=== PATIENT | female | born 1960 | race Asian ===

== ENCOUNTER 2019-03-07 11:55 | Emergency (ER) | payer OTHER ==
[~2019-03-07] VITALS: Ht 160 cm; Wt 73.0 kg
[2019-03-07] MEDS ORDERED: EVIS60 PO (12:01)
[2019-03-07] MEDS ORDERED: LEVO25TA2 PO (12:01)
[2019-03-07] MEDS ORDERED: IBUPROFEN 600MG TABLET PO ONE (12:30)
[2019-03-07] MEDS ORDERED: CYCLOBENZAPRINE 10MG TABLET PO SCH (12:30)
[2019-03-07 15:30] VITALS: BP 126/78
== END 2019-03-07 15:45 | disposition home or self-care (01) ==
LOC: ER 11:55
DX: S13.4XXA Sprain of ligaments of cervical spine, initial encounter (principal); M54.5 Low back pain; I51.9 Heart disease, unspecified; E03.9 Hypothyroidism, unspecified; V49.59XA Passenger injured in collision with other motor vehicles in traffic accident, initial encounter; Y93.89 Activity, other specified; Y92.89 Other specified places as the place of occurrence of the external cause; Y99.8 Other external cause status
CPT/HCPCS: 72100; 81025; 99284